=== PATIENT | female | born 1985 | race African-American/Black ===

== ENCOUNTER 2021-02-17 13:44 | Inpatient (IN) ==
[2021-02-17] MEDS ORDERED: SODIUM CHLORIDE 0.9% 1,000 ML IV STA (13:51)
[2021-02-17 14:34] LABS: Basophils # 0.1 10*3/uL (0.0-0.2); Basophils % 0.4 % (0.0-0.8); Eosinophils % 0.3 % (0.00-10.9); Hematocrit 42.7 VOL% (35.7-47.0); Hemoglobin 15.2 GM/DL (12.0-16.0); Immature Granulocytes % 0.7 %; Immature Granulocytes Absolute 0.08 #; Lymphocytes # 3.4 10*3/uL (1.4-4.0); Lymphocytes % 29.3 % (21.3-54.2); Mean Corpuscular HGB Conc 35.6 GM/DL (32-36); Mean Corpuscular Volume 91.8 FL (87-102); Mean Platelet Volume 10.3 FL (9.6-12.0); Neutrophils % 61.3 % (38.7-73.9); Platelet Count 280 T/CUMM (130-400); Red Blood Count 4.65 MC/CUMM (3.8-5.5); Red Cell Distribution Width 14.8 % (9.3-17.3); White Blood Count 11.5 T/CUMM (4-12)
[2021-02-17 14:45] LABS: Partial Thromboplastin Time 25.1 SECS (23.9-33.8)
[2021-02-17 14:52] LABS: Alanine Aminotransferase 14 U/L (13-56); Alkaline Phosphatase 57 U/L (45-117); Aspartate Amino Transferase 18 U/L (0-37); Blood Urea Nitrogen 8 MG/DL (7-18); Calcium 8.5 MG/DL (8.5-10.1); Carbon Dioxide 22 MMOL/L (21-32); Estimated Glom Filtration Rate 105 ML/MIN; Glucose 92 MG/DL (74-106); Osmolality,Calculated 280.1 MOS/KG (273-304); Potassium 4.1 MMOL/L (3.5-5.1); Sodium 142 MMOL/L (136-145); Total Protein 6.4 G/DL (6.4-8.2)
[2021-02-17 14:54] LABS: Bilirubin,Urine Negative (Negative); Blood, Urine Negative (Negative); Glucose,Urine (UA) Negative (Negative); Hyaline Casts,Urine 44 /LPF (0-3); Ketones,Urine Negative (Negative); Mucus,Urine Few /LPF (Occasional); Nitrite,Urine Negative (Negative); Protein,Urine 30 MG/DL; RBC,Urine 2 /HPF (0-4); Squamous Epithelial Cell,Urine Occasional /HPF (0-10); Urine Appearance CLEAR (Clear); Urine Color Yellow (Yellow); Urine Specific Gravity 1.014 (1.001-1.035); Urine Urobilinogen < 2.0 EU/DL (0.2-1.0)
[2021-02-17] MEDS ORDERED: ALTEPLASE 100 MG/100 ML BOTTLE ONE (14:59)
[2021-02-17 15:33] LABS: Barbiturates Screen,Urine Negative (Negative); Benzodiazepines Screen,Urine Negative (Negative); Cannabinoid Screen,Urine Positive (Negative); Opiate Screen,Urine Negative (Negative); Phencyclidine Screen,Urine Negative (Negative)
[2021-02-17] MEDS ORDERED: ALTEPLASE 81 MG in PREMIX 1 EACH IV ONE (15:51)
[2021-02-17] MEDS ORDERED: ALTEPLASE 9 MG in PREMIX 1 EACH IV ONE (15:51)
[2021-02-17] MEDS ORDERED: LABETALOL 20 MG/4 ML SYRINGE IV PRN (16:21)
[2021-02-17] MEDS ORDERED: SODIUM CHLORIDE 0.9% 1,000 ML IV SCH (16:30)
[2021-02-17 17:01] LABS: Risk Ratio 3.23; VLDL Cholesterol 30.2 MG/DL
[2021-02-17 18:53] VITALS: BP 119/79
[2021-02-17] MEDS ORDERED: ATORVASTATIN 80 MG TABLET PO SCH (21:00)
[2021-02-19 11:41] LABS: Protein C Activity Plasma 135 % (70 - 150)
[2021-02-20 11:43] LABS: DRVVT Screen Ratio 0.95 ratio (<1.20); INR 1.2 (0.9-1.1)
[2021-02-20 11:51] LABS: Homocysteine 14.6 nmol/mL (4.5-12.1)
== END 2021-02-17 20:43 | disposition hospice, home (50) | DRG 45 ==
LOC: EDBD → EDUNIT# → N.ED 13:44 → N.EDINP 16:21 → N.ICU 17:47
PROVIDERS: ADMIT Family Medicine; ATTEND Family Medicine